=== PATIENT | female | born 1935 | race Caucasian/White ===

== ENCOUNTER 2022-06-12 10:05 | Emergency (ER) | payer MEDICARE ==
[2022-06-12 11:04] LABS: EOS # 0.09 K/mm3 (0.04-0.40); HEMATOCRIT 46.9 % (37.0-47.0); HEMOGLOBIN 15.2 g/dL (12.5-16.0); MEAN CELL VOLUME 92 fl (78-100); MEAN CORPUSCULAR HEMOGLOBIN 30 pg (27-31); MEAN CORPUSCULAR HGB CONC 32 g/dL (33-37); MEAN PLATELET VOLUME 10.2 fl (7.4-10.4); MONO # 0.41 K/mm3 (0.20-0.80); NEU # 6.34 K/mm3 (1.40-6.50); PLATELET COUNT 227 K/mm3 (130-400); RED BLOOD COUNT 5.12 M/mm3 (4.10-5.30); RED CELL DISTRIBUTION WIDTH 13.2 % (11.5-14.5); WHITE BLOOD COUNT 9.3 K/mm3 (4.8-10.8)
[2022-06-12 11:16] LABS: ALBUMIN 3.9 g/dL (3.4-4.8); POTASSIUM 4.1 mmol/L (3.5-5.1); SODIUM 143 mmol/L (136-145)
[2022-06-12 11:19] LABS: GLUCOSE 108 mg/dL (65-105); TOTAL PROTEIN 6.8 g/dL (6.2-8.1)
[2022-06-12 11:20] LABS: CARBON DIOXIDE 26 mmol/L (23-31)
[2022-06-12 11:21] LABS: TOTAL BILIRUBIN 1.1 mg/dL (0.2-1.2)
[2022-06-12 11:24] LABS: AST-SGOT 20 U/L (5-34)
[2022-06-12 11:25] LABS: ALT/SGPT 12 U/L (0-55)
[2022-06-12 11:31] LABS: TROPONIN-I < 0.030 ng/mL (<0.030)
[2022-06-12 12:03] VITALS: BP 157/76
== END 2022-06-12 12:02 | disposition home or self-care (01) ==
LOC: ED 10:05
PROVIDERS: Family Medicine
DX: N17.9 Acute kidney failure, unspecified (principal); I10 Essential (primary) hypertension; R29.898 Other symptoms and signs involving the musculoskeletal system; Z28.310 Unvaccinated for COVID-19; Z79.82 Long term (current) use of aspirin

== ENCOUNTER → 2023-08-12 | Outpatient (CLI) | payer MEDICARE | LOC: RAD 11:55 | DX: R05.9 Cough, unspecified (principal) ==

== ENCOUNTER 2023-12-13 07:35 | Emergency (ER) | payer MEDICARE ==
[~2023-12-13] VITALS: Ht 162.6 cm; Wt 60.0 kg
[2023-12-13] MEDS ORDERED: LEVOTHYROXIN0.075 MG PO (07:57)
[2023-12-13] MEDS ORDERED: LOTENSIN40 M1 PO (07:57)
[2023-12-13] MEDS ORDERED: MULTIVITAMIN1 EACH PO (07:58)
[2023-12-13] MEDS ORDERED: CALCIUM 600 +1 EAC4 PO (07:58)
[2023-12-13] MEDS ORDERED: NORVASC 5MG5 MG/TAB PO (07:58)
[2023-12-13] MEDS ORDERED: B12 ACTIVE1000 MCG PO (07:59)
[2023-12-13] MEDS ORDERED: ASPIRIN E.C. 8181 MG PO (07:59)
[2023-12-13] MEDS ORDERED: BIOTIN1 M1 PO (07:59)
[2023-12-13] MEDS ORDERED: CEPHALEXIN500 M1 PO (09:25)
[2023-12-13] MEDS ORDERED: Cephalexin 250 MG CAP PO ONE (09:30)
[2023-12-13 09:44] VITALS: BP 168/83
== END 2023-12-13 09:44 | disposition home or self-care (01) ==
LOC: ED 07:35
DX: S61.217A Laceration without foreign body of left little finger without damage to nail, initial encounter (principal); Z88.1 Allergy status to other antibiotic agents; W19.XXXA Unspecified fall, initial encounter; W26.9XXA Contact with unspecified sharp object(s), initial encounter; Y92.009 Unspecified place in unspecified non-institutional (private) residence as the place of occurrence of the external cause
CPT/HCPCS: 90715

== ENCOUNTER 2024-03-15 10:38 | Outpatient (RCR) | payer MEDICARE ==
[~2024-03-15 10:38] MED LIST: ASPIRIN E.C. 8181 MG PO; B12 ACTIVE1000 MCG PO; BIOTIN1 M1 PO; CALCIUM 600 +1 EAC4 PO; CEPHALEXIN500 M1 PO; LEVOTHYROXIN0.075 MG PO; LOTENSIN40 M1 PO; MULTIVITAMIN1 EACH PO; NORVASC 5MG5 MG/TAB PO
== END 2024-04-10 | disposition home or self-care (01) ==
LOC: PT
DX: R26.89 Other abnormalities of gait and mobility (principal); R29.6 Repeated falls